=== PATIENT | male | born 1970 | race Caucasian/White ===

== ENCOUNTER 2019-11-19 11:40 | Outpatient (CLI) | payer OTHER, SELFPAY ==
[2019-11-19 13:23] LABS: Basophils Percent Auto 0.5 % (0.2-1.2); Eosinophils Absolute Auto 0.2 K/mm3 (0-0.3); Eosinophils Percent Auto 2.7 % (0-4.4); Hematocrit 46.4 % (42.0-52.0); Hemoglobin 15.7 g/dL (14.0-18.0); Immature Granulocyte Absolute 0.03 K/mm3 (0.00-0.031); Immature Granulocyte Percent A 0.5 % (0-0.5); Lymphocytes Absolute Auto 2.32 K/mm3 (0.9-3.2); Lymphocytes Percent Auto 39.8 % (18.3-44.2); Mean Corpuscular HGB Conc 33.8 g/dl (32-36); Mean Corpuscular Hemoglobin 29.8 pg (26-34); Mean Corpuscular Volume 88.2 fl (80-100); Monocytes Absolute Auto 0.5 K/mm3 (0.1-0.6); Monocytes Percent Auto 8.7 % (2.6-8.5); Neutrophils Absolute Auto 2.8 K/mm3 (1.3-6.7); Neutrophils Percent Auto 47.8 % (45.5-73.1); Platelet Count Result 213 k/mm3 (150-375); Red Blood Count 5.26 M/mm3 (4.6-6.20); Red Cell Distribution Width 12.9 % (11.5-14.5); White Blood Count 5.8 K/mm3 (4.5-10.0)
[2019-11-19 13:35] LABS: Alanine Aminotransferase 45 U/L (4-50); Albumin Level 4.6 g/dL (3.5-5.1); Alkaline Phosphatase 119 U/L (38-126); Aspartate Amino Transferase 26 U/L (17-59); Bilirubin,Total 0.4 mg/dL (0.2-1.3); Blood Urea Nitrogen 16 mg/dL (9-20); Calcium 9.3 mg/dL (8.4-10.2); Carbon Dioxide 27 mmol/L (22-30); Chloride 104 mmol/L (98-107); Cholesterol 175 mg/dL (0-200); Estimated Glomerular Filt Rate > 60; Glucose 95 mg/dL (75-110); HDL Direct 38 mg/dL; Sodium 141 mmol/L (137-145); Triglycerides 103 mg/dL (<150)
[2019-11-19 13:46] LABS: LDL Cholesterol Direct 130 mg/dL
[2019-11-19 14:06] LABS: Prostate Specific Antigen 1.2 ng/mL (< OR = 4.0)
== END 2019-11-19 11:41 | disposition home or self-care (01) ==
LOC: ANHWCLAB 11:41
PROVIDERS: PCP Internal Medicine; Visit Provider Internal Medicine
DX: Z76.89 Persons encountering health services in other specified circumstances (principal); Z12.5 Encounter for screening for malignant neoplasm of prostate
CPT/HCPCS: 36415; 80053; 80061; 84153; 84443; 85025; G0103

== ENCOUNTER 2020-11-20 08:25 | Outpatient (CLI) | payer OTHER, SELFPAY ==
[2020-11-20 08:48] LABS: Basophils Percent Auto 0.5 % (0.2-1.2); Eosinophils Absolute Auto 0.2 K/mm3 (0-0.3); Eosinophils Percent Auto 3.8 % (0-4.4); Hematocrit 47.5 % (42.0-52.0); Hemoglobin 16.4 g/dL (14.0-18.0); Immature Granulocyte Absolute 0.03 K/mm3 (0.00-0.031); Immature Granulocyte Percent A 0.5 % (0-0.5); Lymphocytes Absolute Auto 2.24 K/mm3 (0.9-3.2); Lymphocytes Percent Auto 37.3 % (18.3-44.2); Mean Corpuscular HGB Conc 34.5 g/dl (32-36); Mean Corpuscular Hemoglobin 31.1 pg (26-34); Mean Platelet Volume 10.5 fl (7.4-10.4); Monocytes Absolute Auto 0.6 K/mm3 (0.1-0.6); Monocytes Percent Auto 9.8 % (2.6-8.5); Neutrophils Absolute Auto 2.9 K/mm3 (1.3-6.7); Neutrophils Percent Auto 48.1 % (45.5-73.1); Platelet Count Result 195 k/mm3 (150-375); Red Blood Count 5.28 M/mm3 (4.6-6.20)
[2020-11-20 08:58] LABS: Alanine Aminotransferase 24 U/L (4-50); Albumin Level 4.6 g/dL (3.5-5.1); Alkaline Phosphatase 98 U/L (38-126); Anion Gap 6 mmol/L (8-16); Aspartate Amino Transferase 21 U/L (17-59); Bilirubin,Total 0.3 mg/dL (0.2-1.3); Blood Urea Nitrogen 24 mg/dL (9-20); Calcium 9.3 mg/dL (8.4-10.2); Carbon Dioxide 28 mmol/L (22-30); Chloride 106 mmol/L (98-107); Cholesterol 182 mg/dL (0-200); Estimated Glomerular Filt Rate > 60; Glucose 109 mg/dL (75-110); HDL Direct 38 mg/dL; Potassium 3.8 mmol/L (3.4-5.0); Sodium 140 mmol/L (137-145); Triglycerides 158 mg/dL (<150)
[2020-11-20 09:09] LABS: LDL Cholesterol Direct 116 mg/dL
[2020-11-20 09:27] LABS: Prostate Specific Antigen 1.1 ng/mL (< OR = 4.0)
[2020-11-20 09:30] LABS: Microalbumin Urine Random 16.8 mg/L (0-16.7)
[2020-11-20 09:31] LABS: Creatinine Urine 279.4 mg/dL
[2020-11-20 09:36] LABS: Vitamin D 25 Hydroxy 50.4 ng/mL
== END 2020-11-20 08:26 | disposition home or self-care (01) ==
PROVIDERS: PCP Internal Medicine; Visit Provider Internal Medicine
DX: Z00.00 Encounter for general adult medical examination without abnormal findings (principal); E78.2 Mixed hyperlipidemia; Z12.5 Encounter for screening for malignant neoplasm of prostate
CPT/HCPCS: 36415; 80053; 80061; 82043; 82306; 84153; 84443; 85025; G0103

== ENCOUNTER → 2021-03-22 08:31 | Outpatient (REF) | payer OTHER, SELFPAY | LOC: ANHLAB 08:31 | PROVIDERS: PCP Internal Medicine; Visit Provider Nurse Practitioner | DX: R22.9 Localized swelling, mass and lump, unspecified (principal) | CPT/HCPCS: 88304 ==

== ENCOUNTER 2021-11-21 08:22 | Outpatient (CLI) | payer OTHER, SELFPAY ==
[2021-11-21 08:37] LABS: Basophils Percent Auto 0.7 % (0.2-1.2); Eosinophils Absolute Auto 0.2 K/mm3 (0-0.3); Eosinophils Percent Auto 4.1 % (0-4.4); Hematocrit 45.8 % (42.0-52.0); Hemoglobin 15.6 g/dL (14.0-18.0); Immature Granulocyte Absolute 0.02 K/mm3 (0.00-0.031); Immature Granulocyte Percent A 0.4 % (0-0.5); Lymphocytes Absolute Auto 2.06 K/mm3 (0.9-3.2); Lymphocytes Percent Auto 38.5 % (18.3-44.2); Mean Corpuscular HGB Conc 34.1 g/dl (32-36); Mean Corpuscular Hemoglobin 31.3 pg (26-34); Mean Corpuscular Volume 91.8 fl (80-100); Mean Platelet Volume 10.6 fl (7.4-10.4); Monocytes Absolute Auto 0.5 K/mm3 (0.1-0.6); Monocytes Percent Auto 9.7 % (2.6-8.5); Neutrophils Absolute Auto 2.5 K/mm3 (1.3-6.7); Neutrophils Percent Auto 46.6 % (45.5-73.1); Platelet Count Result 184 k/mm3 (150-375); Red Blood Count 4.99 M/mm3 (4.6-6.20); Red Cell Distribution Width 13.4 % (11.5-14.5); White Blood Count 5.4 K/mm3 (4.5-10.0)
[2021-11-21 08:56] LABS: Alanine Aminotransferase 48 U/L (4-50); Albumin Level 4.5 g/dL (3.5-5.1); Alkaline Phosphatase 113 U/L (38-126); Anion Gap 6 mmol/L (8-16); Aspartate Amino Transferase 30 U/L (17-59); Bilirubin,Total 0.5 mg/dL (0.2-1.3); Blood Urea Nitrogen 13 mg/dL (9-20); Calcium 8.7 mg/dL (8.4-10.2); Carbon Dioxide 30 mmol/L (22-30); Chloride 105 mmol/L (98-107); Cholesterol 191 mg/dL (0-200); Estimated Glomerular Filt Rate > 60; Glucose 119 mg/dL (65-110); HDL Direct 36 mg/dL; Sodium 141 mmol/L (137-145); Triglycerides 68 mg/dL (<150)
[2021-11-21 09:07] LABS: LDL Cholesterol Direct 121 mg/dL
[2021-11-21 10:25] LABS: Microalbumin Urine Random 43.9 mg/L (0-16.7)
[2021-11-21 11:14] LABS: Prostate Specific Antigen 1.3 ng/mL (< OR = 4.0)
[2021-11-21 12:52] LABS: Creatinine Urine 349.6 mg/dL; MALB Creatinine Ratio 12.6 mg/g (0-30)
[2021-11-22 12:24] LABS: Hemoglobin A1C 5.3 % (<5.7)
== END 2021-11-21 08:23 | disposition home or self-care (01) ==
LOC: ANHLAB 08:24
PROVIDERS: PCP Internal Medicine; Visit Provider Internal Medicine
DX: Z00.00 Encounter for general adult medical examination without abnormal findings (principal); Z12.5 Encounter for screening for malignant neoplasm of prostate; E78.2 Mixed hyperlipidemia
CPT/HCPCS: 36415; 80053; 80061; 82043; 83036; 84153; 84443; 85025; G0103

== ENCOUNTER → 2022-02-19 09:27 | Outpatient (REF) | payer OTHER, SELFPAY | LOC: ANHLAB 09:27 | PROVIDERS: PCP Internal Medicine; Visit Provider Nurse Practitioner | DX: D49.2 Neoplasm of unspecified behavior of bone, soft tissue, and skin (principal) | CPT/HCPCS: 88305; 88342 ==

== ENCOUNTER → 2022-03-05 16:03 | Outpatient (REF) | payer OTHER, SELFPAY | LOC: ANHLAB 16:03 | PROVIDERS: PCP Internal Medicine; Visit Provider Nurse Practitioner | DX: C43.9 Malignant melanoma of skin, unspecified (principal) | CPT/HCPCS: 88305 ==

== ENCOUNTER 2022-11-21 09:31 | Outpatient (CLI) | payer OTHER, SELFPAY ==
[2022-11-21 10:23] LABS: Hemoglobin 15.7 g/dL (14.0-18.0); Mean Corpuscular HGB Conc 34.1 g/dl (32-36); Mean Corpuscular Hemoglobin 30.8 pg (26-34); Mean Corpuscular Volume 90.4 fl (80-100); Mean Platelet Volume 10.7 fl (7.4-10.4); Platelet Count Result 224 k/mm3 (150-375); Red Blood Count 5.09 M/mm3 (4.6-6.20); Red Cell Distribution Width 12.9 % (11.5-14.5)
[2022-11-21 10:30] LABS: Alanine Aminotransferase 28 U/L (6-50); Albumin Level 4.7 g/dL (3.5-5.1); Alkaline Phosphatase 111 U/L (38-126); Anion Gap 8 mmol/L (8-16); Aspartate Amino Transferase 23 U/L (17-59); Bilirubin,Total 0.7 mg/dL (0.2-1.3); Blood Urea Nitrogen 12 mg/dL (9-20); Calcium 8.9 mg/dL (8.4-10.2); Carbon Dioxide 31 mmol/L (22-30); Chloride 102 mmol/L (98-107); Cholesterol 156 mg/dL (0-200); Estimated Glomerular Filt Rate > 60; Glucose 104 mg/dL (65-110); HDL Direct 33 mg/dL; Potassium 3.8 mmol/L (3.4-5.0); Sodium 141 mmol/L (137-145); Triglycerides 82 mg/dL (<150)
[2022-11-21 10:39] LABS: Hemoglobin A1C 5.3 % (<5.7)
[2022-11-21 10:42] LABS: LDL Cholesterol Direct 101 mg/dL
[2022-11-21 11:02] LABS: Prostate Specific Antigen 1.1 ng/mL (< OR = 4.0)
== END 2022-11-21 09:32 | disposition home or self-care (01) ==
LOC: ANHLAB 09:32
PROVIDERS: PCP Internal Medicine; Visit Provider Internal Medicine
DX: Z00.00 Encounter for general adult medical examination without abnormal findings (principal); R73.01 Impaired fasting glucose; Z12.5 Encounter for screening for malignant neoplasm of prostate; E66.9 Obesity, unspecified
CPT/HCPCS: 36415; 80053; 80061; 83036; 84153; 84443; 85027; G0103

== ENCOUNTER 2023-11-25 08:38 | Outpatient (CLI) | payer OTHER, SELFPAY ==
--- NOTE | ~2023-11-25 | XR_ITS ---
EXAMINATION: XR toe 2nd RT min 2V DATE: 11/25/2023 09:08 INDICATION: Right second toe pain. TECHNIQUE: 4 views of right second toe were obtained. COMPARISON: None. FINDINGS: Bone alignment is normal. No fracture. There is mild osteoarthritis of first metatarsophala ngeal joint and severe osteoarthritis of second proximal interphalangeal joint. IMPRESSION: 1. Polyarticular osteoarthritis. Reviewed, dictated and finalized at location A.
--- NOTE | ~2023-11-25 | XR_ITS ---
EXAMINATION: XR hand RT min 3V DATE: 11/25/2023 09:07 INDICATION: Right hand pain. TECHNIQUE: 3 views of right hand were obtained. COMPARISON: None. FINDINGS: Bone alignment is normal. No fracture. There is mild osteoarthritis of second metacarpophal angeal joint, first interphalangeal joint, second proximal interphalangeal joint, and fourth and fift h distal interphalangeal joints. IMPRESSION: 1. Mild polyarticular osteoarthritis. Reviewed, dictated and finalized at location A.
[2023-11-25 09:02] LABS: Hematocrit 47.6 % (42.0-52.0); Hemoglobin 15.7 g/dL (14.0-18.0); Mean Corpuscular Hemoglobin 30.6 pg (26-34); Mean Corpuscular Volume 92.8 fl (80-100); Mean Platelet Volume 10.7 fl (7.4-10.4); Platelet Count Result 195 k/mm3 (150-375); Red Blood Count 5.13 M/mm3 (4.6-6.20); Red Cell Distribution Width 12.9 % (11.5-14.5); White Blood Count 4.7 K/mm3 (4.5-10.0)
[2023-11-25 09:23] LABS: Alanine Aminotransferase 23 U/L (6-50); Albumin Level 4.6 g/dL (3.5-5.1); Alkaline Phosphatase 107 U/L (38-126); Anion Gap 8 mmol/L (8-16); Aspartate Amino Transferase 22 U/L (17-59); Bilirubin,Total 0.7 mg/dL (0.2-1.3); Blood Urea Nitrogen 17 mg/dL (9-20); Carbon Dioxide 27 mmol/L (22-30); Chloride 105 mmol/L (98-107); Cholesterol 145 mg/dL (0-200); Estimated Glomerular Filt Rate > 60; Glucose 107 mg/dL (65-110); HDL Direct 34 mg/dL; Potassium 3.7 mmol/L (3.4-5.0); Sodium 140 mmol/L (137-145); Triglycerides 71 mg/dL (<150)
[2023-11-25 09:32] LABS: Hemoglobin A1C 5.5 % (<5.7)
[2023-11-25 09:34] LABS: LDL Cholesterol Direct 98 mg/dL
[2023-11-25 09:51] LABS: Prostate Specific Antigen 1.6 ng/mL (< OR = 4.0)
[2023-11-28 19:47] LABS: ANA Cascade Screen Negative (Negative)
== END 2023-11-25 08:39 | disposition home or self-care (01) ==
PROVIDERS: PCP Family Medicine; Visit Provider Family Medicine
DX: E66.9 Obesity, unspecified (principal); L40.9 Psoriasis, unspecified; R73.01 Impaired fasting glucose; Z12.5 Encounter for screening for malignant neoplasm of prostate; Z76.89 Persons encountering health services in other specified circumstances; M19.071 Primary osteoarthritis, right ankle and foot; M19.041 Primary osteoarthritis, right hand
CPT/HCPCS: 36415; 73130; 73660; 80053; 80061; 83036; 84153; 85027; 86038; 86225; 86235; 86364; G0103

== ENCOUNTER 2024-11-25 08:35 | Outpatient (CLI) | payer OTHER, SELFPAY ==
[2024-11-25 09:31] LABS: Hematocrit 47.3 % (42.0-52.0); Hemoglobin 16.1 g/dL (14.0-18.0); Mean Corpuscular Hemoglobin 30.6 pg (26-34); Mean Corpuscular Volume 89.9 fl (80-100); Mean Platelet Volume 10.8 fl (7.4-10.4); Platelet Count Result 188 k/mm3 (150-375); Red Blood Count 5.26 M/mm3 (4.6-6.20); Red Cell Distribution Width 13.1 % (11.5-14.5); White Blood Count 4.9 K/mm3 (4.5-10.0)
[2024-11-25 09:46] LABS: Alanine Aminotransferase 24 U/L (6-50); Albumin Level 4.8 g/dL (3.5-5.1); Alkaline Phosphatase 95 U/L (38-126); Anion Gap 10 mmol/L (4-12); Aspartate Amino Transferase 22 U/L (17-59); Bilirubin,Total 0.9 mg/dL (0.2-1.3); Blood Urea Nitrogen 16 mg/dL (9-20); Calcium 9.3 mg/dL (8.4-10.2); Carbon Dioxide 29 mmol/L (22-30); Chloride 103 mmol/L (98-107); Cholesterol 172 mg/dL (0-200); Estimated Glomerular Filt Rate > 60; Glucose 105 mg/dL (65-110); HDL Direct 42 mg/dL; Potassium 3.8 mmol/L (3.4-5.0); Sodium 142 mmol/L (137-145); Triglycerides 76 mg/dL (<150)
[2024-11-25 09:57] LABS: LDL Cholesterol Direct 107 mg/dL
[2024-11-25 10:10] LABS: Hemoglobin A1C 5.4 % (<5.7)
[2024-11-25 10:14] LABS: Vitamin D 25 Hydroxy 44.3 ng/mL
[2024-11-25 10:15] LABS: Prostate Specific Antigen 1.4 ng/mL (< OR = 4.0)
[2024-11-25 10:35] LABS: Vitamin B12 > 1000.0 pg/mL (239-931)
[2024-11-26 06:17] LABS: CRP, High Sensitivity 0.8 mg/L
== END 2024-11-25 08:36 | disposition home or self-care (01) ==
LOC: ANHLAB 08:38
PROVIDERS: PCP Family Medicine; Visit Provider Family Medicine
DX: R73.01 Impaired fasting glucose (principal); E66.9 Obesity, unspecified; Z79.899 Other long term (current) drug therapy; Z12.5 Encounter for screening for malignant neoplasm of prostate; C43.9 Malignant melanoma of skin, unspecified; L40.9 Psoriasis, unspecified; Z00.00 Encounter for general adult medical examination without abnormal findings
CPT/HCPCS: 36415; 80053; 80061; 82172; 82306; 82607; 83036; 84153; 85027; 86141; G0103

== ENCOUNTER 2025-01-21 15:28 | Outpatient (CLI) | payer OTHER, SELFPAY ==
--- NOTE | ~2025-01-21 | CT_ITS ---
History: Facial weakness PROCEDURE: CT head without contrast. COMPARISON: None TECHNIQUE: Axial imaging of the head performed from the skull base to the vertex without IV contrast. Sagittal a nd coronal reformations obtained. DLP: 605 mGy-cm FINDINGS: The ventricles are normal in size, shape and position. There is no mass, mass effect or midline shift. There is no abnormal extra-axial fluid collection or intracranial hemorrhage. Visualized paranasal sinuses are clear. The mastoid air cells are well aerated. No acute displaced fractures within the overlying cranium. Impression: No acute intracranial hemorrhage or suspicious mass effect. Reviewed, dictated and finalized at location A. Impression: No acute intracranial hemorrhage or suspicious mass effect.
== END 2025-01-21 15:29 | disposition home or self-care (01) ==
LOC: ANHIMG 15:32
PROVIDERS: PCP Family Medicine; Visit Provider Nurse Practitioner Family
DX: R29.810 Facial weakness (principal); R20.2 Paresthesia of skin
CPT/HCPCS: 70450

== ENCOUNTER 2025-03-16 00:47 | Day surgery (SDC) | payer OTHER, SELFPAY ==
[2025-02-24 08:53] VITALS: BMI 28.3
[2025-03-16 08:04] VITALS: BP 143/92; PULSE 85; RESP 18; TEMP 36.8; O2SAT 96; BMI 28.5
--- NOTE | 2025-03-16 08:09 | P.PNAN_ITS ---
Anes - Initial Pre Proc Eval Procedure: Operation Date: 03/16/25 09:30 Proposed Procedures p Screening Colonoscopy - Holland Simons MD Date/Time: 03/16/25 08:09 Surgeon: Holland Simons MD Pre Op Diagnosis: Screening Patient Data Age: 54 Gender: M Height: 1.78 m Weight: 90.2 kg Last Vital Signs Temp 36.8 C 03/16/25 08:04 Pulse 85 03/16/25 08:04 Resp 18 03/16/25 08:04 BP 143/92 H 03/16/25 08:04 Pulse Ox 96 03/16/25 08:04 O2 Del Method Room Air 03/16/25 08:04 Allergies Allergy/AdvReac Type Severity Reaction Status Date / Time No Known Allergies Allergy Verified 03/16/25 08:03 Home Medications ?Medication ?Instructions ?Recorded ?Confirmed ?Type clobetasol 0.05 % topical ointment 1 applic topical DAILY 11/25/24 02/24/25 History tamsulosin 0.4 mg capsule 0.4 mg PO QHS #90 caps 11/25/24 03/16/25 Rx guselkumab 100 mg/mL subcutaneous 100 mg subcut ONCE 01/21/25 02/24/25 History auto-injector (Tremfya) Patient hx anesthesia problems: none Family hx anesthesia problems: none Results Review: All pre-operative results and documents have been reviewed as part of the pre- operative evaluation. [facility] Past Medical History Medical History Melanoma of abdomen IFG (impaired fasting glucose) Psoriasis Family History Family History Mother Diabetes mellitus Leukemia Skin cancer Father Parkinson disease Father Family history of Parkinson's disease Social History Social History Smoking status: Never smoker Alcohol intake: current Drinks per week: 1 Alcohol use details: Occasionally Substance use: never Substance use type: does not use Lack of Transportation: No Lack of Food: Never True Current Housing: I Have Housing Concerned About Future Housing: No Difficulty Paying Gas/Electric Bills: No Difficulty Paying for Meds: No Currently Unemployed: No Education: Bachelor's Degree Difficulty w/ Childcare or Family Care: No Living arrangements: with family Occupation/Education: occupation 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 Informed Consent: The patient's anesthetic plan and its attendant risks and benefits were discussed with the patient/family/POA. Questions were solicited and answers provided to the satisfaction of the patient/family/POA.
[2025-03-16] MEDS: LACTATED RINGERS 1,000 ML 150 ML IV CONT (08:16)
--- NOTE | 2025-03-16 08:20 | PM.IMHP ---
H&P: HPI History of Present Illness Date/Time: 03/16/25 08:20 Chief Complaint: Screening colonoscopy Narrative: This is the patient's 2nd colonoscopy. There are no GI symptoms and there is no family history of colorectal cancer. Review of Systems Review of Systems: All systems reviewed & are unremarkable except as noted in HPI and below PMFSH Past Medical History Medical History Melanoma of abdomen IFG (impaired fasting glucose) Psoriasis Family History Family History Mother Diabetes mellitus Leukemia Skin cancer Father Parkinson disease Father Family history of Parkinson's disease Social History Social History Smoking status: Never smoker Alcohol intake: current Drinks per week: 1 Alcohol use details: Occasionally Substance use: never Substance use type: does not use Lack of Transportation: No Lack of Food: Never True Current Housing: I Have Housing Concerned About Future Housing: No Difficulty Paying Gas/Electric Bills: No Difficulty Paying for Meds: No Currently Unemployed: No Education: Bachelor's Degree Difficulty w/ Childcare or Family Care: No Living arrangements: with family Occupation/Education: occupation 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 Gender identity (if verbalized by the patient): Male Spiritual care concerns: No Meds Home Medications and Allergies Home Medications ?Medication ?Instructions ?Recorded ?Confirmed ?Type clobetasol 0.05 % topical ointment 1 applic topical DAILY 11/25/24 02/24/25 History tamsulosin 0.4 mg capsule 0.4 mg PO QHS #90 caps 11/25/24 03/16/25 Rx guselkumab 100 mg/mL subcutaneous 100 mg subcut ONCE 01/21/25 02/24/25 History auto-injector (Tremfya) Allergies Allergy/AdvReac Type Severity Reaction Status Date / Time No Known Allergies Allergy Verified 03/16/25 08:03 Vital Signs Vital Signs - 24 hr 03/16/25 08:04 Temperature 98.3 F Pulse Rate 85 Respiratory Rate 18 Blood Pressure 143/92 H Pulse Oximetry 96 Oxygen Delivery Room Air Exam Const: General: cooperative and healthy appearing Resp: Effort & Inspection: normal respiratory effort and able to speak in complete sentences Auscultation: clear to auscultation bilaterally Cardio: Rate: regular rate Rhythm: regular rhythm GI: Inspection: normal to inspection GI Palp: No No hepatosplenomegaly present Auscultation: normal bowel sounds Rectal Exam: deferred Skin: General skin exam: normal color Psych: Appearance: grossly normal Mental Status: mental status grossly normal Assessment and Plan Assessment and plan (1) Colon cancer screening: Code(s): Z12.11 - Encounter for screening for malignant neoplasm of colon Status: Acute Assessment and Plan: The patient is deemed a good candidate for the procedure. Consent signed. Will proceed.
[2025-03-16 08:41] VITALS: BP 100/65; PULSE 72; RESP 15; O2SAT 100
--- NOTE | 2025-03-16 08:42 | S_PTH ---
PATIENT: Nir Cardozo Jr. LOC: [facility] Miguel#:[id number] AGE/SX: 54/M ROOM: RE03/16/[address]: Holland Simons MD : 1970 BED: DIS: 03/16/2025 SPEC #: [id number] RECD: 03/16/25 13:16 STATUS: TRINO REDebo #: [id number] JANEL: 03/16/25 08:[address]: Holland Simons DEPT: [facility] Surgical RECD BY: David Maldonado ENTERED: 03/16/25 13:17 SP TYPE: Surgical OTHR DR: Ham Hackett MD Tissues: A - Colon Polypectomy Procedures: Hematoxylin and Eosin Stain Gross and Microscopic Level 4
[2025-03-16 08:51] VITALS: BP 113/73; PULSE 63; RESP 20; O2SAT 97
[2025-03-16 09:01] VITALS: BP 124/77; PULSE 70; RESP 19; O2SAT 96
== END 2025-03-16 09:09 | disposition home or self-care (01) ==
PROVIDERS: PCP Family Medicine; Referring Provider Family Medicine; Visit Provider Internal Medicine Gastroenterology
PROC: 0DJD8ZZ Inspection of Lower Intestinal Tract, Via Natural or Artificial Opening Endoscopic (ICD-10-PCS; CPT 45378; principal; 2025-03-16 09:30)
DX: Z12.11 Encounter for screening for malignant neoplasm of colon (principal); D12.3 Benign neoplasm of transverse colon
CPT/HCPCS: 45385; 88305; J2704; J7120